=== PATIENT | male | born 1965 | race African-American/Black ===

== ENCOUNTER 2016-06-12 13:21 | Emergency (ER) | payer SELFPAY ==
--- NOTE | 2016-06-12 13:31 | PDOC ---
History of Present Illness - General Chief Complaint: Overdose Stated Complaint: OVERDOSE Time Seen by Provider: 06/12/16 13:30 Past History - Past Medical History Allergies/Adverse Reactions: Allergies Allergy/AdvReac Type Severity Reaction Status Date / Time No Known Allergies Allergy Verified 09/15/12 08:58 Home Medications: Ambulatory Orders Ibuprofen [Motrin -] 600 mg PO QID PRN #24 tablet 09/15/12 No Home Medications 0 dose .ROUTE UTDICT 09/15/12 Oxycodone HCl/Acetaminophen [Percocet 5/325 -] 1 combo PO Q6H PRN #8 tablet 03/30 - Psycho/Social/Smoking Cessation Hx Suicidal Ideation: No Smoking Status: Yes Smoking History: Current every day smoker Number of Cigarettes Smoked Daily: 20
[2016-06-12] MEDS ORDERED: NALOXONE HCL 0.4 MG/ML VIAL ONE (13:33)
[2016-06-12 13:44] VITALS: BP 115/85; PULSE 82; TEMP 98
--- NOTE | 2016-06-12 14:04 | PDOC ---
History of Present Illness - General Chief Complaint: Overdose Stated Complaint: OVERDOSE Time Seen by Provider: 06/12/16 13:30 - History of Present Illness Initial Comments: 06/12/16 14:10 50-year-old male with a history of snorting heroin and abusing ETOH He was found unresponsive and not breathing by his niece EMS was called, and they found him unresponsive and not breathing with pinpoint pupils He was given a total of 6 mg of Narcan (2 intranasal, and 4 mg IV ) He awakened immediately, and is now alert and answering questions He states he was snorting heroin Past History - Past Medical History Allergies/Adverse Reactions: Allergies Allergy/AdvReac Type Severity Reaction Status Date / Time No Known Allergies Allergy Verified 06/12/16 13:42 Home Medications: Ambulatory Orders No Home Medications 0 dose .ROUTE UTDICT 09/15/12 Thyroid Disease: No Other medical history: drug abuse - Psycho/Social/Smoking Cessation Hx Anxiety: No Suicidal Ideation: No Smoking Status: Yes Smoking History: Current every day smoker Number of Cigarettes Smoked Daily: 20 Information on smoking cessation initiated: No Hx Alcohol Use: Yes (drinks etoh everyday) Drug/Substance Use Hx: Yes (reefa, controlled substances) Substance Use Type: Alcohol, Marijuana, Prescribed *Physical Exam - Vital Signs Last Vital Signs Temp Pulse Resp BP Pulse Ox 98.0 F 82 18 115/85 06/12/16 13:21 06/12/16 13:21 06/12/16 13:21 06/12/16 13:21 - Physical Exam Comments: 06/12/16 14:12 Patient is alert and answering questions Last Vital Signs Temp Pulse Resp BP Pulse Ox 98.0 F 82 18 115/85 06/12/16 13:21 06/12/16 13:21 06/12/16 13:21 06/12/16 13:21 GENERAL: The patient is awake, alert, and fully oriented, and in no apparent distress. HEAD: Normal with no signs of trauma. EYES: sclera anicteric, conjunctiva are normal. ENT: Moist mucous membranes. NECK: Normal range of motion, supple LUNGS: Breath sounds equal, clear to auscultation bilaterally. No wheezes, and no crackles. HEART: Regular rate and rhythm, normal S1 and S2 without murmur, rub or gallop. ABDOMEN: Soft, nontender, normoactive bowel sounds. No guarding, no rebound. No masses appreciated. EXTREMITIES: Normal range of motion, no edema. No clubbing or cyanosis. No cords, erythema, or tenderness. NEUROLOGICAL: Cranial nerves II through XII grossly intact. Normal speech, normal gait. PSYCH: Normal mood, normal affect. SKIN: Warm, Dry, normal turgor, no rashes or lesions noted. Medical Decision Making - Medical Decision Making 06/12/16 14:14 Out of hospital heroin OD, responded immediately to IV Narcan by EMS pre- hospital Awake and alert, ambulatory, demanding to go home NOW Patient is here with his niece He refuses to be admitted to the hospital, he refuses bloodwork or any monitoring at this time He is awake and alert and ambulatory He wants to sign out AGAINST MEDICAL ADVICE NOW He is going back with his niece, who states that she will keep an eye on him I explained to him that he had overdosed on heroin, and was essentially , and EMS revived him with Narcan I told him how important it was to stay, and start a detox program, I explained to him that he might not be so erin to be found in time next time He refuses to stay, he is going home with his niece, and will sign out AGAINST MEDICAL ADVICE 06/12/16 14:18 EKG Normal sinus rhythm 84, normal axis Normal AV and IV conduction time Normal QTC Normal EKG Patient has decided to leave AMA The patient had a normal mental status examination, and understands his/her condition, and the risk of leaving (include specific details), including permanent disability and/or . The patient has had an opportunity to ask questions about his/her medical condition. The patient has been informed that he/she may return for care at any time, and has been referred to his/her own physician *DC/Admit/Observation/Transfer Diagnosis at time of Disposition: Heroin overdose - Discharge Dispostion Disposition: AGAINST MEDICAL ADVICE - Patient Instructions Additional Instructions: You are leaving AGAINST MEDICAL ADVICE You were found essentially , and EMS revived you You may with the next overdose You need detox!!!
--- NOTE | 2016-06-15 11:53 | EKG ---
Test Reason : Blood Pressure : / mmHG Vent. Rate : 084 BPM Atrial Rate : 084 BPM P-R Int : 160 ms QRS Dur : 084 ms QT Int : 384 ms P-R-T Axes : 079 049 067 degrees QTc Int : 453 ms NORMAL SINUS RHYTHM NORMAL ECG NO PREVIOUS ECGS AVAILABLE Confirmed by ISELA ALLRED MD ([id number]) on 06/15/2016 11:53:09 AM Referred By: Confirmed By:ISELA ALLRED MD
== END 2016-06-12 14:25 | disposition left against medical advice (07) ==
LOC: JER 13:21
DX: T40.1X1A Poisoning by heroin, accidental (unintentional), initial encounter (principal); F17.210 Nicotine dependence, cigarettes, uncomplicated
CPT/HCPCS: 93005; 93010; 99282-25